=== PATIENT | male | born 1950 | race Two or more races ===

== ENCOUNTER 2023-09-02 08:46 | Inpatient (IN) | payer MEDICARE, OTHER ==
[2023-09-02] VITALS (9 sets, daily range): BP systolic 140–151; BP diastolic 70–90; TEMP 97.3–98.4; O2SAT 95–100
[~2023-09-02] VITALS: Ht 175.3 cm; Wt 86.2 kg
[2023-09-02] MEDS ORDERED: ALFU10TA10 PO (10:14)
[2023-09-02] MEDS ORDERED: FINA5TAB11 PO (10:14)
[2023-09-02] MEDS ORDERED: IBUP-1957 PO (10:14)
[2023-09-02] MEDS ORDERED: NAPR-1009 PO (10:14)
[2023-09-02] MEDS ORDERED: dexaMETHasone SOD PHOSPHATE 10 MG/ML VIAL ONE (11:50)
[2023-09-02] MEDS ORDERED: VANCOMYCIN 1 GM VIAL ONE (11:50)
[2023-09-02] MEDS ORDERED: LIDOCAINE 2%-EPI 1:100,000 30 ML VIAL ONE (11:50)
[2023-09-02] MEDS ORDERED: OXYMETAZOLINE HCL NASAL SPRAY 30 ML BOTTLE NS ONE (11:50)
[2023-09-02] MEDS ORDERED: SEVOFLURANE 250 ML BOTTLE IH ONE (12:50)
[2023-09-02] MEDS ORDERED: ACETAMINOPHEN 325 MG TABLET PO PRN (14:30)
[2023-09-02] MEDS ORDERED: IV NS 0.9% 1,000 ML IV PRN (14:30)
[2023-09-02] MEDS ORDERED: ONDANSETRON HCL/PF 4 MG/2 ML VIAL IV PRN (14:30)
[2023-09-02] MEDS: HYDROMORPHONE 1 MG/1 ML DISP.SYRIN IV PRN (17:53)
[2023-09-03] MEDS: VANCOMYCIN 1 GM in IV D5W 250ml IV SCH ×2 (00:31→11:10)
[2023-09-03] MEDS: HYDROMORPHONE 1 MG/1 ML DISP.SYRIN IV PRN (00:33)
[2023-09-03 09:30] VITALS: BP 116/76; TEMP 97.5; O2SAT 98
== END 2023-09-03 12:30 | disposition home or self-care (01) | DRG 138 ==
LOC: DS 08:46 → MED 08:47
PROVIDERS: ADMIT Nurse Practitioner Family; ATTEND Nurse Practitioner Family
PROC: 0CB30ZZ Excision of Soft Palate, Open Approach (ICD-10-PCS; principal; 2023-09-02)
DX: K13.79 Other lesions of oral mucosa (principal); N40.0 Benign prostatic hyperplasia without lower urinary tract symptoms
CPT/HCPCS: 36415; 86850-TC; 87081-TC; 88305-TC; A4223; G0378; J0690; J1100; J1170; J1885; J2704; J3370; J3490; J7030; J7060